=== PATIENT | female | born 1980 | race Caucasian/White ===

== ENCOUNTER 2016-06-03 20:03 | Emergency (ER) | payer OTHER | END 2016-06-03 22:17 | disposition left against medical advice (07) | LOC: ER1 20:03 | DX: Z53.21 Procedure and treatment not carried out due to patient leaving prior to being seen by health care provider (principal) ==

== ENCOUNTER 2021-06-05 19:44 | Inpatient (IN) | payer OTHER ==
[~2021-06-05] VITALS: Ht 154.9 cm; Wt 57.8 kg
[~2021-06-05 19:44] MED LIST: BENTYL 20MG TAB20 MG PO; ZOFRAN ODT 4 MG4 MG SL
[2021-06-05 21:06] LABS: BUN/CREATININE RATIO 6 (0-10)
[2021-06-05 21:12] LABS: RED BLOOD COUNT 3.89 M/UL (4.00-5.10)
[2021-06-05 21:14] LABS: HEMOGLOBIN 5.7 gm/dl (12.3-15.3)
[2021-06-05] MEDS ORDERED: PROTONIX40 MG PO (23:20)
[2021-06-06 07:23] LABS: WHITE BLOOD COUNT 6.9 K/UL (4.5-11.0)
[2021-06-06 07:26] LABS: RED BLOOD COUNT 4.45 M/UL (4.00-5.10)
[2021-06-06 07:50] LABS: BUN/CREATININE RATIO 8 (0-10)
--- NOTE | 2021-06-06 14:32 | NUR ---
EDUCATED PATIENT ON NEED FOR FURTHER MEDICAL CARE AND OBSERVATION, TO RETURN IF SYMPTOMS WORSEN. PATIENT YUE BALIZED UNDTERSANDING PIV DISCONTINUED, BAND AID APPLIED. AMA PAPER SIGNED PATIENT LEFT WITH BOYFRIEND AND MOTHER AMBULATING WITHOUT DIFFICULTY.
[2021-06-07 16:12] LABS: HSV-2 IGG SUPPLEMENTAL TEST Positive (Negative)
== END 2021-06-06 14:25 | disposition left against medical advice (07) | DRG 378 ==
LOC: ER1 19:44 → CDU 22:46 → M/S 22:46
PROVIDERS: Internal Medicine; Physician Assistant; Surgery; ADMIT Internal Medicine
PROC: 30233N1 Transfusion of Nonautologous Red Blood Cells into Peripheral Vein, Percutaneous Approach (ICD-10-PCS; 2021-06-05)
PROC: 0DJ08ZZ Inspection of Upper Intestinal Tract, Via Natural or Artificial Opening Endoscopic (ICD-10-PCS; principal; 2021-06-06 12:05)
DX: K29.71 Gastritis, unspecified, with bleeding (principal); N39.0 Urinary tract infection, site not specified; Z20.822 Contact with and (suspected) exposure to COVID-19; E46 Unspecified protein-calorie malnutrition; F11.20 Opioid dependence, uncomplicated; D50.9 Iron deficiency anemia, unspecified; E87.6 Hypokalemia; K13.0 Diseases of lips; E88.09 Other disorders of plasma-protein metabolism, not elsewhere classified; F17.290 Nicotine dependence, other tobacco product, uncomplicated; F41.9 Anxiety disorder, unspecified; L97.529 Non-pressure chronic ulcer of other part of left foot with unspecified severity; L97.519 Non-pressure chronic ulcer of other part of right foot with unspecified severity; J02.9 Acute pharyngitis, unspecified; Z82.49 Family history of ischemic heart disease and other diseases of the circulatory system; Z88.6 Allergy status to analgesic agent; Z68.22 Body mass index [BMI] 22.0-22.9, adult; Z87.440 Personal history of urinary (tract) infections; Z98.51 Tubal ligation status; Z87.11 Personal history of peptic ulcer disease
CPT/HCPCS: 36430; 80048; 80053; 81001; 82248; 82272; 82607; 82728; 82746; 83540; 83550; 83615; 83690; 83735; 84132; 84703; 85018; 85025; 85045; 85610; 86403; 86695; 86696; 86850; 86900; 86901; 86920; 87077; 87081; 87086; 87186; 87880; 93005; 96374; 96375; 99285; C9113; J0696; J1170; J1756; J1885; J2405; J2704; J3480; J7040; P9016; Q0177; U0002